=== PATIENT | female | born 1970 ===

== ENCOUNTER 2019-08-28 11:01 | Outpatient (CLI) | payer OTHER ==
[2019-08-28 14:50] LABS: Chol/HDL Ratio 4.53 %
== END 2019-08-28 11:02 | disposition home or self-care (01) ==
LOC: LAB 11:01
PROVIDERS: ATTEND Internal Medicine
DX: E78.5 Hyperlipidemia, unspecified (principal); R73.03 Prediabetes
CPT/HCPCS: 36415; 80061; 83036